=== PATIENT | male | born 1950 | race African-American/Black ===

== ENCOUNTER 2020-02-27 14:22 | Emergency (ER) | payer OTHER, MEDICAID ==
[~2020-02-27] VITALS: Ht 185.4 cm; Wt 88.0 kg
--- NOTE | 2020-02-27 16:34 | RAD ---
STUDY: CT head and cervical spine without contrast INDICATION: Trauma. Alcohol use. Poor historian. COMPARISON: None. TECHNIQUE: Axial CT imaging through the head and cervical spine without the use of intravenous contrast. Sagittal and coronal reformats were obtained. One or more of the following individualized dose reduction techniques were utilized for this examination: 1. Automated exposure control 2. Adjustment of the mA and/or kV according to patient size 3. Use of iterative reconstruction technique. FINDINGS: CT head: No acute intracranial hemorrhage. Extensive right cerebral hemisphere hypoattenuation mainly conforming to the right middle cerebral artery territory and most likely the sequela of a prior infarct. Background white matter findings typical of chronic microvascular ischemic change. Small chronic lentiform nucleus agricultural produce packer infarct on the right. No findings by CT of an acute cortical infarction. No midline shift or hydrocephalus. Parenchymal volume loss. Carotid siphon calcific atherosclerosis. No large scalp hematoma or findings of orbital trauma. No depressed calvarial fracture. Chronic appearing nasal bone complex deformity. CT cervical spine: No acute fracture or traumatic malalignment. Bulky prevertebral osteophytes from C3-C4 through C6-C7. Multilevel discogenic arthrosis greatest at C3-C4. Facet degeneration with fusion across multiple facet joints. Central canal stenosis at most levels favored mild and moderate. Varying degrees of neural foraminal stenosis severe at several levels. Left glenohumeral joint arthrosis. Scattered calcific atherosclerosis. Asymmetric prominence of the left thyroid lobe. It is difficult to delineate a discrete nodule. Emphysema at the apices. IMPRESSION: CT head: 1. No acute intracranial abnormality by CT. 2. Findings involving a large portion of the right cerebral hemisphere favored the sequela of a prior right middle cerebral artery territory infarct on a background of advanced chronic microvascular ischemic change. If there is concern for an acute ischemic event MRI is recommended. CT cervical spine: 1. No acute fracture or traumatic malalignment. 2. Advanced multifactorial degenerative changes with favored no more than moderate central canal stenosis but not fully evaluated. Severe osseous neural foraminal stenosis at several levels. 3. Emphysema. Electronically signed by: SRIRAM TRAVIS MD (02/27/2020 4:31 PM) [id number]
[2020-02-27 18:30] VITALS: BP 93/55
--- NOTE | 2020-02-27 18:55 | PHYS DOC ---
Past Medical History Past Medical History: Stroke, Other Additional Past Medical Histor: PER EMS, FAMILY SAID PT. HAS HAD A STROKE IN THE PAST. (YODIT HUYNH MD) Past Surgical History: No Surgical History (YODIT HUYNH MD) Smoking Status: Unknown if ever smoked Alcohol Use: Heavy Social History Narrative: UNKNOWN, PT NOT PARTICIPATING IN CONVERSATION AT THIS TIME (YODIT HUYNH MD) General Adult EDM: Chief Complaint: ALCOHOL INTOXICATION HPI: HPI: Patient is 69-year-old male who presents to the emergency room after being found passed out on his porch. According to EMS patient has been drinking all weekend. Patient is intoxicated and unable to provide any history. (YODIT HUYNH MD) Review of Systems: Review of Systems: Unable to obtain (YODIT HUYNH MD) Heart Score: Risk Factors: Risk Factors: DM, Current or recent (<one month) smoker, HTN, HLP, family history of CAD, obesity. Risk Scores: Score 0 - 3: 2.5% MACE over next 6 weeks - Discharge Home Score 4 - 6: 20.3% MACE over next 6 weeks - Admit for Clinical Observation Score 7 - 10: 72.7% MACE over next 6 weeks - Early Invasive Strategies (YODIT HUYNH MD) Allergies: Allergies: Allergies Coded Allergies Type Severity Reaction Last Updated Verified Unable to Assess 02/27/20 No (YODIT HUYNH MD) Physical Exam: PE: General: Awake, alert, NAD. Well Nourished, well hydrated. Cooperative HEENT: Atraumatic, EOMI, PERRL, airway patent, moist oral mucosa, no nasal septal hematoma, no facial crepitus or deformity Neck: Supple, trachea midline, no deformities Respiratory: CTA bilaterally, normal effort, no wheezing/crackles, no crepitus CV: RRR, no murmur, cap refill <2, 2+ bilateral radial/DP pulses GI: Soft, nondistended, nontender, no masses MSK: [No obvious deformities], pelvis stable and nontender Skin: Warm, dry, [intact] Neuro: slurred speech, no focal deficits Psych: intoxicated, agitated not suicidal or homicidal (YODIT HUYNH MD) PE: Constitutional: Well developed, disheveled HENT: Normocephalic, atraumatic Neck: Normal range of motion, supple Lungs & Thorax: No respiratory distress, equal chest rise and fall Skin: Warm, dry Extremities: No tenderness, ROM intact, no edema Neurologic: Alert and oriented, clinically sober, no focal deficits noted (CATY MONTES DO) Current Patient Data: Labs: Laboratory Tests Test 02/27/20 14:20 Ethyl Alcohol Level 353 mg/dL (0-10) H Vital Signs: Vital Signs Date Time Temp Pulse Resp B/P (MAP) Pulse Ox O2 Delivery O2 Flow Rate FiO2 02/27/20 18:30 62 93/55 (68) 98 Room Air 02/27/20 14:22 97.3 16 97.3 (YODIT HUYNH MD) EKG: EKG: [] (YODIT HUYNH MD) Radiology/Procedures: Radiology/Procedures: [] (YODIT HUYNH MD) Radiology/Procedures: PROCEDURE: CT HEAD AND CERVICAL SPINE WO STUDY: CT head and cervical spine without contrast INDICATION: Trauma. Alcohol use. Poor historian. COMPARISON: None. TECHNIQUE: Axial CT imaging through the head and cervical spine without the use of intravenous contrast. Sagittal and coronal reformats were obtained. One or more of the following individualized dose reduction techniques were utilized for this examination: 1. Automated exposure control 2. Adjustment of the mA and/or kV according to patient size 3. Use of iterative reconstruction technique. FINDINGS: CT head: No acute intracranial hemorrhage. Extensive right cerebral hemisphere hypoattenuation mainly conforming to the right middle cerebral artery territory and most likely the sequela of a prior infarct. Background white matter findings typical of chronic microvascular ischemic change. Small chronic lentiform nucleus securities research analyst infarct on the right. No findings by CT of an acute cortical infarction. No midline shift or hydrocephalus. Parenchymal volume loss. Carotid siphon calcific atherosclerosis. No large scalp hematoma or findings of orbital trauma. No depressed calvarial fracture. Chronic appearing nasal bone complex deformity. CT cervical spine: No acute fracture or traumatic malalignment. Bulky prevertebral osteophytes from C3-C4 through C6-C7. Multilevel discogenic arthrosis greatest at C3-C4. Facet degeneration with fusion across multiple facet joints. Central canal stenosis at most levels favored mild and moderate. Varying degrees of neural foraminal stenosis severe at several levels. Left glenohumeral joint arthrosis. Scattered calcific atherosclerosis. Asymmetric prominence of the left thyroid lobe. It is difficult to delineate a discrete nodule. Emphysema at the apices. IMPRESSION: CT head: 1. No acute intracranial abnormality by CT. 2. Findings involving a large portion of the right cerebral hemisphere favored the sequela of a prior right middle cerebral artery territory infarct on a background of advanced chronic microvascular ischemic change. If there is concern for an acute ischemic event MRI is recommended. CT cervical spine: 1. No acute fracture or traumatic malalignment. 2. Advanced multifactorial degenerative changes with favored no more than moderate central canal stenosis but not fully evaluated. Severe osseous neural foraminal stenosis at several levels. 3. Emphysema. Electronically signed by: SRIRAM TRAVIS MD (02/27/2020 4:31 PM) [id number] (CATY MONTES DO) Course & Med Decision Making: Course & Med Decision Making Pertinent Labs and Imaging studies reviewed. (See chart for details) Patient presents to the Emergency Room due to intoxication. On exam, patient has no signs of trauma but is incoherent. Patient does not have any signs of trauma at this time and has stable vital signs. Patient has no complaints. Patient will be observed in the Emergency Room until clinically sober and will be re- evaluated at that time. CT head and C-spine were done due to patient's age and unclear whether or not he fell. CT is negative. Patient discussed with oncoming physician Dr. Montes will assume care. (YODIT HUYNH MD) Course & Med Decision Making 1830- Sign out received from Dr. Huynh for patient who presented with acute intoxication for ETOH. Banana bag previously provided. CT head/cervical spine reviewed. Patient monitored in ED until clinically sober. Patient stable for discharge with outpatient follow-up with PCP//drug rehab. Drug and alcohol rehab resources provided. Sister able to garbage pick up man patient and take him home. (CATY MONTES DO) Dragon Disclaimer: Dragon Disclaimer: This electronic medical record was generated, in whole or in part, using a voice recognition dictation system. (YODIT HUYNH MD) Departure Departure Impression: Primary Impression: Alcohol intoxication Qualified Codes: F10.920 - Alcohol use, unspecified with intoxication, uncomplicated Disposition: 01 HOME, SELF-CARE Condition: STABLE Patient Instructions: Alcohol Intoxication, [id number], Alcohol and Drug Addiction, Finding Treatment Justicifation of Admission Dx: Justifications for Admission: Justification of Admission Dx: N/A (YODIT HUYNH MD) Justification of Admission Dx: N/A (CATY MONTES DO) YODIT HUYNH MD Feb 27, 2020 18:55 CATY MONTES DO Feb 27, 2020 19:39
== END 2020-02-27 20:32 | disposition home or self-care (01) ==
LOC: ER 14:22
DX: F10.229 Alcohol dependence with intoxication, unspecified (principal); I25.2 Old myocardial infarction
CPT/HCPCS: 36415; 70450; 72125; 99285; G0480